=== PATIENT | female | born 1975 | race Caucasian/White ===

== ENCOUNTER 2020-05-24 07:27 | Outpatient (CLI) | payer OTHER, SELFPAY ==
--- NOTE | ~2020-05-24 | MM_ITS ---
EXAMINATION: MM screening jay BI w garett HISTORY: Screening TECHNIQUE: Craniocaudal and mediolateral oblique 3-D tomosynthesis images were obtained and synthetic 2-D images were generated. CAD analysis was submitted and interpreted. COMPARISON: No prior mammogram is available for comparison at this institution. BREAST PARENCHYMAL COMPOSITION: The breasts are heterogeneously dense, which may obscure small masses . FINDINGS: There is a cluster of calcifications in the outer aspect of the right breast on CC view. Th margarito are not definitely identified on MLO view. No mammographic evidence for malignancy in the left br east. IMPRESSION: 1. Clustered indeterminate calcifications outer aspect of the right breast seen on CC view only. 2. Magnification and mediolateral views of the right breast recommended. BI-RADS Category 0: Incomplete: Needs additional imaging evaluation. Reviewed, dictated and finalized at location A. RY FILTER OPERATOR
== END 2020-05-24 07:28 | disposition home or self-care (01) ==
LOC: ANHIMG 07:33
PROVIDERS: PCP Family Medicine; Visit Provider Obstetrics & Gynecology
DX: Z12.31 Encounter for screening mammogram for malignant neoplasm of breast (principal); R92.8 Other abnormal and inconclusive findings on diagnostic imaging of breast
CPT/HCPCS: 77063; 77067

== ENCOUNTER 2020-06-27 13:01 | Outpatient (CLI) | payer OTHER, SELFPAY ==
--- NOTE | ~2020-06-27 | MMUS_ITS ---
EXAMINATION: MM diagnostic mammo unilat RT, US breast RT complete HISTORY: Follow-up calcifications TECHNIQUE: Additional 3-D tomosynthesis images of the right breast were performed and synthetic 2-D i mages were generated. CAD analysis was submitted and interpreted. High resolution right breast ultras ound was performed. COMPARISON: 05/24/2020 BREAST PARENCHYMAL COMPOSITION: The breasts are heterogenously dense, which may obscure small masses. FINDINGS: MAMMOGRAPHIC FINDINGS: There are clustered calcifications lateral aspect of the right breast which are monomorphic and not v isualized on medial lateral view. These are most likely benign. No discrete mass or architectural dis tortion. ULTRASOUND: Complete right breast ultrasound including subareolar location demonstrates normal heterogeneous echo texture without focal solid or cystic mass. IMPRESSION: 1. Probable benign right breast calcifications. 2. Recommend 6 month follow-up diagnostic right mammogram BI-RADS category 3, probably benign findings. Reviewed, dictated and finalized at location A. K INSPECTOR IMPRESSION: 1. Probable benign right breast calcifications. 2. Recommend 6 month follow-up diagnostic right mammogram BI-RADS category 3, probably benign findings.
== END 2020-06-27 13:02 | disposition home or self-care (01) ==
LOC: ANHIMG 13:02
PROVIDERS: PCP Family Medicine; Visit Provider Obstetrics & Gynecology
DX: R92.8 Other abnormal and inconclusive findings on diagnostic imaging of breast (principal)
CPT/HCPCS: 76641; 77065

== ENCOUNTER 2021-01-02 12:22 | Outpatient (CLI) | payer OTHER, SELFPAY ==
--- NOTE | ~2021-01-02 | MM_ITS ---
EXAMINATION: MM diagnostic jay RT w garett HISTORY: Follow-up right breast calcifications TECHNIQUE: Additional 3-D tomosynthesis images of the right breast were performed and synthetic 2-D i mages were generated. CAD analysis was submitted and interpreted. COMPARISON: Comparison to multiple prior studies sequentially, with oldest reviewed study dated 06/27. BREAST PARENCHYMAL COMPOSITION: The breasts are heterogenously dense, which may obscure small masses. FINDINGS: Stable appearance to benign-appearing right breast calcifications. No new masses, calcifica tions or architectural distortion in the right breast to suggest malignancy. IMPRESSION: 1. No mammographic evidence for malignancy in the right breast. 2. Routine yearly screening mammogram and regular clinical breast examination are recommended. BI-RADS Category 2: Benign finding(s). Reviewed, dictated and finalized at location A. IMPRESSION: 1. No mammographic evidence for malignancy in the right breast. 2. Routine yearly screening mammogram and regular clinical breast examination a re recommended. BI-RADS Category 2: Benign finding(s).
== END 2021-01-02 12:23 | disposition home or self-care (01) ==
LOC: ANHIMG 12:24
PROVIDERS: PCP Family Medicine; Visit Provider Obstetrics & Gynecology
DX: R92.8 Other abnormal and inconclusive findings on diagnostic imaging of breast (principal)
CPT/HCPCS: 77061; 77065; G0279

== ENCOUNTER 2022-01-12 07:22 | Outpatient (CLI) | payer OTHER, SELFPAY ==
--- NOTE | ~2022-01-12 | MM_ITS ---
EXAMINATION: MM screening [facility] BI w garett HISTORY: Screening TECHNIQUE: Craniocaudal and mediolateral oblique 3-D tomosynthesis images were obtained and synthetic 2-D images were generated. CAD analysis was submitted and interpreted. COMPARISON: 05/24/2020 BREAST PARENCHYMAL COMPOSITION: The breasts are heterogeneously dense, which may obscure small masses . FINDINGS: There are stable benign-appearing right breast calcifications. There is no evidence of susp icious mass, calcification, or architectural distortion to suggest malignancy in either breast. There has been no suspicious interval change. IMPRESSION: 1. No mammographic evidence of malignancy. 2. Recommend routine screening mammography in one year. BI-RADS Category 2: Benign finding(s). Reviewed, dictated and finalized at location A.
== END 2022-01-12 07:23 | disposition home or self-care (01) ==
LOC: ANHIMG 07:24
PROVIDERS: PCP Family Medicine; Visit Provider Obstetrics & Gynecology
DX: Z12.31 Encounter for screening mammogram for malignant neoplasm of breast (principal)
CPT/HCPCS: 77063; 77067

== ENCOUNTER 2023-03-19 07:14 | Outpatient (CLI) | payer OTHER, SELFPAY ==
--- NOTE | ~2023-03-19 | MM_ITS ---
EXAMINATION: MM screening jay BI w garett HISTORY: Screening mammogram TECHNIQUE: Craniocaudal and mediolateral oblique 3-D tomosynthesis images were obtained and synthetic 2-D images were generated. CAD analysis was submitted and interpreted. COMPARISON: 01/12/2022, 12/31/2020, 06/27/2020, 05/24/2020 BREAST PARENCHYMAL COMPOSITION:The breasts are heterogeneously dense, which may obscure small masses. FINDINGS: Punctate right breast calcifications are probably stable from prior exam. No suspicious mas s, calcification, or architectural distortion are identified in either breast to suggest malignancy. There has been no suspicious interval change. IMPRESSION: No mammographic evidence of malignancy. Recommend routine screening mammography in one year. BI-RADS Category 2: Benign finding(s). Reviewed, dictated and finalized at [facility].
== END 2023-03-19 07:15 | disposition home or self-care (01) ==
LOC: ANHIMG 07:18
PROVIDERS: PCP Family Medicine; Visit Provider Obstetrics & Gynecology
DX: Z12.31 Encounter for screening mammogram for malignant neoplasm of breast (principal)
CPT/HCPCS: 77063; 77067

== ENCOUNTER 2024-03-28 07:32 | Outpatient (CLI) | payer OTHER, SELFPAY ==
--- NOTE | ~2024-03-28 | MM_ITS ---
EXAMINATION: MM screening jay BI w garett HISTORY: Screening TECHNIQUE: Craniocaudal and mediolateral oblique 3-D tomosynthesis images were obtained and synthetic 2-D images were generated. CAD analysis was submitted and interpreted. COMPARISON: Comparison to multiple prior studies sequentially, with oldest reviewed study dated 05/14. BREAST PARENCHYMAL COMPOSITION: Dense: The breasts are heterogeneously dense, which may obscure small masses FINDINGS: There is no evidence of suspicious mass, calcification, or architectural distortion to sugg est malignancy in either breast. There has been no suspicious interval change. IMPRESSION: 1. No mammographic evidence of malignancy. 2. Recommend routine screening mammography in one year. BI-RADS Category 1: Negative Reviewed, dictated and finalized at location B.
== END 2024-03-28 07:33 | disposition home or self-care (01) ==
PROVIDERS: PCP Family Medicine; Visit Provider Obstetrics & Gynecology
DX: Z12.31 Encounter for screening mammogram for malignant neoplasm of breast (principal)
CPT/HCPCS: 77063; 77067

== ENCOUNTER 2025-03-29 07:26 | Outpatient (CLI) | payer OTHER, SELFPAY ==
--- NOTE | ~2025-03-29 | MM_ITS ---
EXAMINATION: MM screening jay BI w garett HISTORY: Screening TECHNIQUE: Craniocaudal and mediolateral oblique 3-D tomosynthesis images were obtained and synthetic 2-D images were generated. CAD analysis was submitted and interpreted. COMPARISON: 03/19/2023 BREAST PARENCHYMAL COMPOSITION: The breasts are heterogeneously dense, which may obscure small masses. FINDINGS: There is no evidence of suspicious mass or architectural distortion in either breast to suggest malignancy. Indeterminant calcifications in the upper- outer quadrant of the left breast, posterior depth. Asymmetry in the outer right breast, posterior depth, with a few indeterminate calcifications. IMPRESSION: 1. Indeterminant calcifications in the upper-outer quadrant of the left breast, posterior depth. The study is incomplete. A diagnostic mammogram is recommended. 2. Asymmetry in the outer right breast, posterior depth, with a few indeterminate calcifications. The study is incomplete. A diagnostic mammogram and a diagnostic ultrasound are recommended. BI-RADS 0: Incomplete-Need additional imaging evaluation. Reviewed, dictated and finalized at location Q. IMPRESSION: 1. Indeterminant calcifications in the upper-outer quadrant of the left breast, posterior depth. The study is incomplete. A diagnostic mammogram is recommende d. 2. Asymmetry in the outer right breast, posterior depth, with a few indetermina te calcifications. The study is incomplete. A diagnostic mammogram and a diagno stic ultrasound are recommended. BI-RADS 0: Incomplete-Need additional imaging evaluation.
--- OUTSIDE RECORDS SUMMARY | 2025-03-29 07:30 | XMS_ITS | Clinical Summary ---
Author Organization [facility] Address [address] [place] [address] Care Team Providers Care Editorial Cartoonist Name Role Phone Kevin Esquivel MD Primary Care Provider [phone] Allergies No known active allergies Medications valACYclovir (VALTREX) 1 gram tablet Take 2 tabs (2000 mg) 2 times a days for 1 day. 4 tablet 5 4 Active cetirizine (ZyrTEC) 10 mg chewable tablet Take 1 tablet (10 mg total) by mouth daily Active dicyclomine (BENTYL) 10 mg capsule Take 1-2 pills up to 4 times daily as needed for abdominal cramping/diarr hea 120 capsule [address] (PROTONIX) 40 mg EC tabletIndication s:Gastroesophage al reflux disease with esophagitis without hemorrhage Take 1 tablet (40 mg total) by mouth daily 90 tablet 2 4 05/25/20 25 Active traZODone (DESYREL) 50 mg tablet Take 1 tablet (50 mg total) by mouth nightly as needed for sleep 90 tablet 4 5 Active Active Problems Problem Noted Date Diagnosed Date Physical exam, annual 05/25/2024 Assessment & Plan (05/25/2024 8:18 AM DEWATERER OPERATOR): Preventative exam; reviewed screenings and vaccinations. Following with contemporary or modern dancer annually. She is up-to-date on mammogram. Current on screening colonoscopy, repeat 2034. Irritable bowel syndrome with diarrhea 4 Assessment & Plan (05/25/2024 8:17 AM DEWATERER OPERATOR): Continues bentyl as needed with good response. Encounter for colorectal cancer screening 2022 Assessment & Plan (06/10/2023 1:05 PM DEWATERER OPERATOR): Patient is agreeable to screening colonoscopy. Recommended EGD completed at that time as well. Denies any family history of colorectal cancer. Gastroesophageal reflux dise ase with esophagitis without hemorrhage 06/10/2023 Assessment & Plan (05/25/2024 8:18 AM DEWATERER OPERATOR): Patient is taking pantoprazole as needed with good response. Avoiding aggravating foods. Assessment & Plan (06/10/2023 1:06 PM DEWATERER OPERATOR): Reviewed limiting aggravating foods such as caffeine, carbonated beverages, spicy/greasy foods and alcohol. No improvement with [id number] PPI and H2 lesli, will start pantoprazole 40 mg daily. Also discussed benefits of weight loss. Patient is due for screening colonoscopy, recommended EGD completed as well. Need for immunization against influenza 04/18/20 Assessment & Plan (04/18/2021 8:30 AM CDT): Vaccine given in office today. Reviewed possible side effects/injection site reactions. Annual physical exam 04/18/2021 Assessment & Plan (06/10/2023 1:05 PM DEWATERER OPERATOR): Preventive exam; reviewed recommended preventive screenings and vaccinations. Following with contemporary or modern dancer for annual well-woman exams. C scope ordered today. Assessment & Plan (06/10/2022 8:23 AM DEWATERER OPERATOR): Reviewed health maintenance and screening recommendations. Current on pap, mammogram and influenza vaccine. Assessment & Plan (04/18/2021 8:30 AM CDT): Preventive exam; reviewed recommended preventive screenings and vaccinations. Current on WWE (will request records). Mammogram completed 12/2020. Up to date on influenza and covid-19 vaccine. Encounter for screening for lipid disorder 04/18 Assessment & Plan (05/25/2024 8:20 AM DEWATERER OPERATOR): Reviewed labs, cholesterol is well controlled. Assessment & Plan (06/10/2023 1:05 PM DEWATERER OPERATOR): Labs ordered today. Assessment & Plan (04/18/2021 8:29 AM CDT): Reviewed previous lipid panel. Fasting labs ordered. Stress incontinence of urine 04/18/2021 Assessment & Plan (05/25/2024 8:19 AM DEWATERER OPERATOR): Patient plans to establish with urologist, interested in discussing surgical options. Plans to reach out to urology office at [facility], will notify us if she requires a referral. Previously taking Myrbetriq, discontinued. Declines referral to pelvic floor PT Assessment & Plan (06/10/2022 8:23 AM DEWATERER OPERATOR): Discontinued myrbetriq. Again discussed benefits of PFPT, defers. Assessment & Plan (04/18/2021 8:29 AM CDT): Started on myrbetriq by [facility] office, has noted improvement in urinary urgency. No s/s if infection. Discussed benefits of pelvic floor PT, patient not interested at this time. Class 1 obesity due to exces s calories without serious comorbidity with body mass index (BMI) of 32.0 to 32.9 in adult 04/18/2021 Assessment & Plan (05/25/2024 8:18 AM DEWATERER OPERATOR): Stable; encouraged active and healthy lifestyle, regular exercise and healthy diet. Assessment & Plan (06/10/2022 8:24 AM DEWATERER OPERATOR): Encouraged regular exercise. Assessment & Plan (04/18/2021 8:31 AM CDT): Discussed healthy diet and importance of regular physical activity. Resolved Problems Problem Noted Date Diagnosed Date Resolved Date Colonoscopy refused 04/18/2021 05/25/20 24 Assessment & Plan (06/10/2022 8:22 AM DEWATERER OPERATOR): No family history of colorectal cancer. Discussed c-scope screening and cologuard. Defers screening at this time. Assessment & Plan (04/18/2021 8:30 AM CDT): Discussed colorectal cancer screening guidelines. No family history of colon cancers. Declines screening with colonoscopy; aware that it is gold standard for CRC screening. Patient is agreeable to cologuard. Aware that kit will be mailed with directions and to call office if not received in 2 weeks. To call office if no results received within 2 weeks of test submission. Immunizations Immunization Administration Dates Next Due Influenza, Trivalent, Adjuva nted, Intramuscular 05/25/2024(Deferred: Patient Refused),03/14/2023 Influenza, Unspecified 03/28/2022,2020,03/13/2020,02/12,06/14/2018 Moderna SARS-CoV-2 Monovalen t Vaccination (12+ YRS) 04/11/2021,07/11/2020,06/13/2020 Surgical History Surgery Date Site/Laterality Comments SHOULDER ARTHROSCOPY Arthroscopy shoulder COLONOSCOPY 12/21/2023 Medical History Medical History Date Comments GERD (gastroesophageal reflux disease) Family History Medical History Relation Name Comments Diabetes type II Brother Cancer Father Hypertension Father Diabetes type II Maternal Grandfather Arthritis Mother Diabetes type II Mother Heart disease Mother Hypertension Mother Kidney disease Mother Stroke Mother Diabetes type II Mother's Brother No Known Problems Sister 1 No Known Problems Sister 2 Relation Name Status Comments Brother Alive Father Alive Maternal Grandfather Mother Mother's Brother Sister 1 Alive Sister 2 Alive Social History Tobacco Use Types Packs/Day Years Used Date Smoking Tobacco: Never Smokeless Tobacco: Never Tobacco Cessation:Counseling Given: Not Answered Alcohol Use Standard Drinks/Week Comments No 0 (1 standard drink = 0.6 oz pur e alcohol) AUDIT-C Answer Date Recorded Q1: How often do you have a drink containing alcohol? Never 01/21/2024 Q2: How many drinks containi ng alcohol do you have on a typical day when you are drinking? Patient does not drink Frequency of Binge Drinking Not on file 02/2024 PHQ-2 Answer Date Recorded PHQ-2 Total Score (If total score is 3 or more points, staff should administer the PHQ-9) 0 05/25/2024 Personal Safety Answer Date Recorded Have you ever been in or are you currently in a harmful physical or emotional relationship or is someone making you feel afraid or unsafe? Denies 12/21/2023 Comments Unknown Sex and Gender Information Value Date Recorded Sex Assigned at Not on file Legal Sex Female 10:17 AM DEWATERER OPERATOR Gender Identity Female 04/18/2021 7:43 AM CDT Sexual Orientation Not on file Obstetrics History Last Filed Vital Signs Vital Sign Reading Time Taken Comments Blood Pressure 124/82 05/25/2024 7:47 AM DEWATERER OPERATOR Pulse 82 05/25/2024 7:47 AM DEWATERER OPERATOR Temperature 36.8 C (98.2 F) 05/25/2024 7:47 AM DEWATERER OPERATOR Respiratory Rate 17 05/25/2024 7:47 AM DEWATERER OPERATOR Oxygen Saturation 99% 05/25/2024 7:47 AM DEWATERER OPERATOR Inhaled Oxygen Concentration - - Weight 73.9 kg (163 lb) 05/25/2024 7:47 AM DEWATERER OPERATOR Height 149.9 cm (4' 11.02) 05/25/2024 7:[address] Body Mass Index 32.9 05/25/2024 7:47 AM DEWATERER OPERATOR Plan of Treatment Health Maintenance Due Date Last Done Comments Hepatitis C Screening 1975 DTaP/Tdap/Td Vaccine (1 - Tdap) 10/28/1986 Hepatitis B Screening 10/28/1993 Cervical Cancer Screening 04/08/2022 04/08/2021 Covid-19 Vaccine ( season) 2025 04/11/2021, 04/11/2021, 07/11/2020, Additional history exists Influenza Vaccine (#1) 2025 , 03/28/2022, 03/26/2021, Additional history exists Breast Cancer Screening-Mammogram 03/28/2025 03/28/2024, 03/19/2023, 01/12/2022, Additional history exists Depression Screening 05/25/2025 05/25/2024, 06/10/2023, 06/10/2022, Additional history exists Regular Well Visit/Exam 18-64 05/25/2025 05/25/2024, 06/10/2023, 06/10/2022, Additional history exists Colon Cancer Screening-Colonoscopy 12/20/2033 12/21/2023 Pneumococcal vaccine <65 Aged Out No longer eligible based on patient's age to complete this topic Procedures Procedure Name Priority Date/Time Associated Diagnosis Comments SCREENING MAMMOGRAM BILATERAL W CHARLIE Schedule Routine, Read Routine (OP Routine) 03/28/2024 8:19 AM CDT COLONOSCOPY 12/21/2023 11:56 AM CDT HM PAP SMEAR WITH HPV Routine 04/08/2021 from Last 3 Months or Most Recently Relevant to Health Maintenance Results * Screening Mammogram Bilateral W Charlie (03/28/2024 8:19 AM CDT) Anatomical Region Laterality Modality Breast Bilateral Mammography 03/28/2024 8:19 AM CDT us Historical Provider MD HYMAN MAMMO PROCEDURES Luann l Result * Colonoscopy (12/21/2023 11:56 AM CDT) Anatomical Region Laterality Modality Other Narrative Procedure Note Ethan Lowe MD - 12/21/2023 11:56 AM CDT [facility] Patient Name: Nick Umana Procedure Date: 12/21/2023 11:56 AM Date of : 1975 Admit Type: Outpatient Age: 48 Gender: Female Attending MD: Ethan Lowe M.D. Room: [facility] ENDOSCOPY ROOM 1 Note Status: Finalized Patient Profile: This is a 48 year old female. No family history of colon cancer. Noted complaints of chronic diarrheaand IBS. Procedure: Colonoscopy Indications: Screening for colorectal malignant neoplasm, Thisis the patient's first colonoscopy Referring MD: Kevin Esquivel M.D. Providers: Ethan Lowe M.D. Impression: - The entire examined colon is normal. Biopsied. - Internal hemorrhoids. Recommendation: - Await pathology results. - Repeat colonoscopy in 10 years for screening purposes. - Continue present medications. Medicines: Monitored Anesthesia Care Complications: No immediate complications. Estimated Blood Loss: Estimated blood loss: none. Procedure: Pre-Anesthesia Assessment: - Prior to the procedure, a History and Physicalwas performed, and patient medications and allergieswere reviewed. The patient's tolerance of previous anesthesia was also reviewed. The risks andbenefits of the procedure and the sedation options and risks were discussed with the patient. All questions were answered, and informed consent was obtained. Prior Anticoagulants: The patient has taken noanticoagulant or antiplatelet agents. ASA Grade Assessment: Per anesthesia note and evaluation. After reviewing the risks and benefits, the patient was deemed in satisfactory condition to undergo the procedure. - Prior to the procedure, a History and Physicalwas performed, and patient medications and allergieswere reviewed. The patient's tolerance of previous anesthesia was also reviewed. The risks andbenefits of the procedure and the sedation options and risks were discussed with the patient. All questions were answered, and informed consent was obtained. Prior Anticoagulants: The patient has taken noanticoagulant or antiplatelet agents. ASA Grade Assessment: Per anesthesia note and evaluation. After reviewing the risks and benefits, the patient was deemed in satisfactory condition to undergo the procedure. The benefits, risks and alternatives of theprocedure and sedation were discussed and informed consentwas obtained. All questions were answered. Please referto the signed informed consent document in the medical record. The bowel preparation used was Miralax via split dose instruction. The bowel preparation usedwas bisacodyl tablets via split dose instruction. The scope was passed under direct vision. The Pediatric Colonoscope PCF-H190L [id number] was introducedthrough the anus and advanced to the the cecum, identifiedby appendiceal orifice and ileocecal valve. Thequality of the bowel preparation was good. Bowel prep was administered using a split dose. Findings: The perianal and digital rectal examinations were normal. The cecum appeared normal. The colon (entire examined portion) appeared normal. Biopsies for histology were taken with a cold forceps from the entire colon for evaluation of microscopic colitis. No polyps and no mass lesionsnoted Internal hemorrhoids were found during retroflexion. The hemorrhoids were small. Electronically signed by Ethan Lowe M.D. Ethan Lowe M.D. 12/21/2023 1:58:39 PM Number of Addenda: 0 Note Initiated On: 12/21/2023 11:56 AM Procedure Code(s): --- Professional --- 05306, Colonoscopy, flexible; with biopsy, single or multiple Diagnosis Code(s): --- Professional --- Z12.11, Encounter for screening for malignant neoplasm of colon K64.8, Other hemorrhoids CPT copyright 2020 [employer]. All rights reserved. The codes documented in this report are preliminary and upon surveillance specialist reviewmay be revised to meet current compliance requirements. Recognized by the [employer] for promoting quality in endoscopy Ethan Lowe MD ENDOSCOPY PROCEDURES Final Result * HM PAP SMEAR WITH HPV (04/08/2021) Scribed Pap Smear w/HPV Normal us Historical Provider HEALTH MAINTENANCE Final Result from Last 3 Months or Most Recently Relevant to Health Maintenance Insurance [facility] CHOICE PLUS Advance Directives For more information, please contact: [phone] * Full Code (Latest Code Status on File) Date Activated Date Inactivated Comments 12/21/2023 11:37 AM 12/21/2023 6:30 PM * Full Code Date Activated Date Inactivated Comments 12/21/2023 11:37 AM 12/21/2023 11:37 AM Care Teams Editorial Cartoonist Relationship Specialty Start Date End Date Kevin Esquivel MD [address] [place] [address] PCP - General Family Medicine 03/06/19
== END 2025-03-29 07:27 | disposition home or self-care (01) ==
LOC: ANHIMG 07:27
PROVIDERS: PCP Family Medicine; Visit Provider Obstetrics & Gynecology
DX: Z12.31 Encounter for screening mammogram for malignant neoplasm of breast (principal); R92.8 Other abnormal and inconclusive findings on diagnostic imaging of breast
CPT/HCPCS: 77063; 77067

== ENCOUNTER 2025-05-15 12:43 | Outpatient (CLI) | payer OTHER, SELFPAY ==
--- NOTE | ~2025-05-15 | MM_ITS ---
EXAMINATION: MM diagnostic jay BI w garett HISTORY: Additional imaging TECHNIQUE: Craniocaudal and mediolateral oblique 3-D tomosynthesis images were obtained and synthetic 2-D images were generated. CAD analysis was submitted and interpreted. COMPARISON: March 29 BREAST PARENCHYMAL COMPOSITION: Dense: The breasts are heterogeneously dense FINDINGS: No suspicious masses are seen. The group of calcifications in the posterior left upper outer quadrant are considered probably benign. The appearance is suggestive of dystrophic calcifications. On the right, some of the faint punctate calcifications were seen previously, but were not as obvious. There may be an increase of a few. In the CC projection on the magnified views, there is a separate small grouping seen relatively centrally posterior to the nipple. It is uncertain whether this lies in the other views, and it may overlap other calcifications in other views. These calcifications appear similar to one another and, as such, are probably benign. No unexplained architectural distortion is seen. There are no skin or nipple abnormalities identified. There is no adenopathy seen on the images submitted. IMPRESSION: Calcifications on both sides classified as probably benign. Six-month follow-up bilateral mammogram is recommended. BI-RADS 3 - Probably benign - short-term follow-up is recommended. Reviewed, dictated and finalized at location B. ING UP MAN
--- OUTSIDE RECORDS SUMMARY | 2025-05-15 13:25 | XMS_ITS | Clinical Summary ---
Author Organization [facility] Address [address] [place] [address] Care Team Providers Care Lime Puller Name Role Phone Kevin Esquivel MD Primary Care Provider [phone] Allergies No known active allergies Medications valACYclovir [...] for sleep 90 tablet 4 5 Active methylPREDNISolo ne (MEDROL DOSEPACK) 4 mg DosepackIndicati ons:Nasal sinus congestion Take as directed on package. 21 tablet 5 05/07/20 25 Active Problems Problem Noted Date Diagnosed Date Physical exam, annual 05/25/2024 Assessment & Plan (05/25/2024 8:18 AM BUSINESS SERVICES ASSISTANT): Preventative exam; reviewed screenings and vaccinations. Following with physician vice president annually. She is up-to-date on mammogram. Current on screening colonoscopy, repeat 2033. Irritable bowel syndrome with diarrhea 4 Assessment & Plan (05/25/2024 8:17 AM BUSINESS SERVICES ASSISTANT): Continues bentyl as needed with good response. Encounter for colorectal cancer screening 2022 Assessment & Plan (06/10/2023 1:05 PM BUSINESS SERVICES ASSISTANT): Patient is agreeable to screening colonoscopy. Recommended EGD completed at that time as well. Denies any family history of colorectal cancer. Gastroesophageal reflux dise ase with esophagitis without hemorrhage 06/10/2023 Assessment & Plan (05/25/2024 8:18 AM BUSINESS SERVICES ASSISTANT): Patient is taking pantoprazole as needed with good response. Avoiding aggravating foods. Assessment & Plan (06/10/2023 1:06 PM BUSINESS SERVICES ASSISTANT): Reviewed limiting aggravating foods such as caffeine, carbonated beverages, spicy/greasy foods and alcohol. No improvement with [id number] PPI and H2 lesli, will start pantoprazole 40 mg daily. Also discussed benefits of weight loss. Patient is due for screening colonoscopy, recommended EGD completed as well. Need for immunization against influenza 04/18/20 Assessment & Plan (04/18/2021 8:30 AM CDT): Vaccine given in office today. Reviewed possible side effects/injection site reactions. Annual physical exam 04/18/2021 Assessment & Plan (06/10/2023 1:05 PM BUSINESS SERVICES ASSISTANT): Preventive exam; reviewed recommended preventive screenings and vaccinations. Following with physician vice president for annual well-woman exams. C scope ordered today. Assessment & Plan (06/10/2022 8:23 AM BUSINESS SERVICES ASSISTANT): Reviewed health maintenance and screening recommendations. Current on pap, mammogram and influenza vaccine. Assessment & Plan (04/18/2021 8:30 AM CDT): Preventive exam; reviewed recommended preventive screenings and vaccinations. Current on WWE (will request records). Mammogram completed 12/2020. Up to date on influenza and covid-19 vaccine. Encounter for screening for lipid disorder 04/18 Assessment & Plan (05/25/2024 8:20 AM BUSINESS SERVICES ASSISTANT): Reviewed labs, cholesterol is well controlled. Assessment & Plan (06/10/2023 1:05 PM BUSINESS SERVICES ASSISTANT): Labs ordered today. Assessment & Plan (04/18/2021 8:29 AM CDT): Reviewed previous lipid panel. Fasting labs ordered. Stress incontinence of urine 04/18/2021 Assessment & Plan (05/25/2024 8:19 AM BUSINESS SERVICES ASSISTANT): Patient plans to establish with urologist, interested in discussing surgical options. Plans to reach out to urology office at [facility], will notify us if she requires a referral. Previously taking Myrbetriq, discontinued. Declines referral to pelvic floor PT Assessment & Plan (06/10/2022 8:23 AM BUSINESS SERVICES ASSISTANT): Discontinued myrbetriq. Again discussed benefits of PFPT, defers. Assessment & Plan (04/18/2021 8:29 AM CDT): Started on myrbetriq by [facility] REC[facility]CILIATOR office, has noted improvement in urinary urgency. No s/s if infection. Discussed benefits of pelvic floor PT, patient not interested at this time. Class 1 obesity due to exces s calories without serious comorbidity with body mass index (BMI) of 32.0 to 32.9 in adult 04/18/2021 Assessment & Plan (05/25/2024 8:18 AM BUSINESS SERVICES ASSISTANT): Stable; encouraged active and healthy lifestyle, regular exercise and healthy diet. Assessment & Plan (06/10/2022 8:24 AM BUSINESS SERVICES ASSISTANT): Encouraged regular exercise. Assessment & Plan (04/18/2021 8:31 AM CDT): Discussed healthy diet and importance of regular physical activity. Resolved Problems Problem Noted Date Diagnosed Date Resolved Date Colonoscopy refused 04/18/2021 05/25/20 24 Assessment & Plan (06/10/2022 8:22 AM BUSINESS SERVICES ASSISTANT): No family history of colorectal cancer. Discussed [...] received within 2 weeks of test submission. Encounters Date Type Department Care Team Description 04/03/2025 Results [facility] [address] [place] [address] Marnie Tolbert NP Screening Mammogram 2D Bilateral from Last 3 Months Immunizations Immunization Administration Dates Next Due Influenza, [...] on file Legal Sex Female 10:17 AM BUSINESS SERVICES ASSISTANT Gender Identity Female 04/18/2021 7:43 AM CDT Sexual Orientation Not on file Last Filed Vital Signs Vital Sign Reading Time Taken Comments Blood Pressure 124/82 05/25/2024 7:47 AM BUSINESS SERVICES ASSISTANT Pulse 82 05/25/2024 7:47 AM BUSINESS SERVICES ASSISTANT Temperature 36.8 C (98.2 F) 05/25/2024 7:47 AM BUSINESS SERVICES ASSISTANT Respiratory Rate 17 05/25/2024 7:47 AM BUSINESS SERVICES ASSISTANT Oxygen Saturation 99% 05/25/2024 7:47 AM BUSINESS SERVICES ASSISTANT Inhaled Oxygen Concentration - - Weight 73.9 kg (163 lb) 05/25/2024 7:47 AM BUSINESS SERVICES ASSISTANT Height 149.9 cm (4' 11.02) 05/25/2024 7:[address] Body Mass Index 32.9 05/25/2024 7:47 AM BUSINESS SERVICES ASSISTANT Plan of Treatment Health Maintenance Due Date Last Done Comments Hepatitis C Screening 1975 DTaP/Tdap/Td Vaccine (1 - Tdap) 10/28/1986 Hepatitis B Screening 10/28/1993 Cervical Cancer Screening 04/08/2022 04/08/2021 Covid-19 Vaccine ( season) 2025 04/11/2021, 04/11/2021, 07/11/2020, Additional history exists Influenza Vaccine (#1) 2025 , 03/28/2022, 03/26/2021, Additional history exists Depression Screening 05/25/2025 05/25/2024, 06/10/2023, 06/10/2022, Additional history exists Regular Well Visit/Exam 18-64 05/25/2025 05/25/2024, 06/10/2023, 06/10/2022, Additional history exists Breast Cancer Screening-Mammogram 03/29/2026 03/29/2025, 03/28/2024, 03/19/2023, Additional history exists Colon Cancer Screening-Colonoscopy 12/20/2033 12/21/2023 Pneumococcal vaccine <65 Aged Out No longer eligible based on patient's age to complete this topic Procedures Procedure Name Priority Date/Time Associated Diagnosis Comments SCREENING MAMMOGRAM 2D BILATERAL Schedule Routine, Read Routine (OP Routine) 03/29/2025 COLONOSCOPY 12/21/2023 11:56 AM CDT HM PAP SMEAR WITH HPV Routine 04/08/2021 from Last 3 Months or Most Recently Relevant to Health Maintenance Results * (ABNORMAL) Screening Mammogram 2D Bilateral (03/29/2025) Anatomical Region Laterality Modality Breast Bilateral Mammography 03/29/2025 us Historical Provider MD [facility] MAMMO PROCEDURES Luann l Result * Colonoscopy (12/21/2023 11:56 AM CDT) Anatomical Region Laterality Modality Other Narrative Procedure Note Ethan Lowe MD - 12/21/2023 11:56 AM CDT [facility] Patient Name: Nick Umana Procedure Date: 12/21/2023 11:56 AM Date of : 1975 Admit Type: Outpatient Age: 48 Gender: Female Attending MD: Ethan Lowe M.D. Room: [facility]COPY RO[facility] 1 Note Status: Finalized Patient [...] under direct vision. The Pediatric Colonoscope PCF-H190L [id number] was introducedthrough the anus and advanced to [...] 11:56 AM Procedure Code(s): --- Professional --- 15322, Colonoscopy, flexible; with biopsy, single or multiple Diagnosis Code(s): --- Professional --- Z12.11, Encounter for screening for malignant neoplasm of colon K64.8, Other hemorrhoids CPT copyright 2020 [employer]. All rights reserved. The codes documented in this report are preliminary and upon ornamental metal fabricator apprentice reviewmay be revised to meet current compliance requirements. Recognized by the [employer] for promoting quality in endoscopy Ethan Lowe MD ENDOSCOPY PROCEDURES Final Result * HM PAP SMEAR WITH HPV (04/08/2021) Scribed Pap Smear w/HPV Normal Historical Provider HEALTH MAINTENANCE Final Result from Last 3 Months or Most Recently Relevant to Health Maintenance Insurance [facility] PL[facility] Advance Directives For more information, please contact: [phone] * Full Code (Latest Code Status on File) Date Activated Date Inactivated Comments 12/21/2023 11:37 AM 12/21/2023 6:30 PM * Full Code Date Activated Date Inactivated Comments 12/21/2023 11:37 AM 12/21/2023 11:37 AM Care Teams Lime Puller Relationship Specialty Start Date End Date Kevin Esquivel MD [address] [place] [address] PCP - General Family Medicine 03/06/19
--- OUTSIDE RECORDS SUMMARY | 2025-05-15 13:25 | XMS_ITS | Encounter Summary ---
Author Organization [facility] Address [address] [place] [address] Care Team Providers Care Sulfonator Operator Name Role Phone Kevin Esquivel MD Primary Care Provider [phone] Encounter Details Date Type Department Care Team (Late st Contact Info) Description 04/03/2025 Results Follow[facility]Up [facility] [address] [place] [address] Marnie Tolbert, BRIEN [address] [facility] [place] [address] Screening Mammogram 2D Bilateral Social History Tobacco Use Types Packs/Day Years Used Date Smoking Tobacco: Never Smokeless Tobacco: Never Alcohol Use Standard Drinks/Week Comments No 0 [...] on file Legal Sex Female 10:17 AM RESOURCE CONSERVATION SPECIALIST Gender Identity Female 04/18/2021 7:43 AM CDT Sexual Orientation Not on file documented as of this encounter Miscellaneous Notes * Result Encounter Note - Stephanie Carranza MA - 04/03/2025 11:25 AM CDT Noted documented in this encounter Plan of Treatment Not on file documented as of this encounter Visit Diagnoses Not on filedocumented in this encounter Care Teams Sulfonator Operator Relationship Specialty Start Date End Date Kevin Esquivel MD [address] [place] [address] PCP - General Family Medicine 03/06/19 documented as of this encounter
== END 2025-05-15 12:44 | disposition home or self-care (01) ==
LOC: ANHFOHIMG 12:46
PROVIDERS: PCP Family Medicine; Visit Provider Obstetrics & Gynecology
DX: R92.8 Other abnormal and inconclusive findings on diagnostic imaging of breast (principal)
CPT/HCPCS: 77062; 77066; G0279